=== PATIENT | female | born 1965 | race Caucasian/White ===

== ENCOUNTER 2020-11-20 21:50 | Inpatient (IN) | payer OTHER ==
[~2020-11-20] VITALS: Ht 170.2 cm; Wt 68.0 kg
[2020-11-20] MEDS ORDERED: LORAZEPAM 2 MG/1 ML VIAL IV ONE (22:00)
[2020-11-20] MEDS ORDERED: IV NORMAL SALINE 1000 ML BAG IV ONE (22:00)
--- NOTE | 2020-11-20 22:08 | NUR ---
Called Marci Davis, owner professional engineer of [facility] [facility] @ , no answer, unable to leave message due to mailbox not set up.
[2020-11-20] MEDS ORDERED: IV NS 1000 ML 1,000 ML IV ONE (22:15)
[2020-11-20 22:17] LABS: BASOPHILS % (AUTO) 0.8 % (0.0-2.0); EOSINOPHILS % (AUTO) 0.2 % (0.0-7.0); HEMATOCRIT 40.8 % (31.2-41.9); HEMOGLOBIN 13.9 g/dL (10.9-14.3); LYMPHOCYTES # (AUTO) 1.4 K/uL (20.0-40.0); MEAN CORPUSCULAR HEMOGLOBIN 29.5 uug (24.7-32.8); MEAN CORPUSCULAR HGB CONC 34 g/dL (32.3-35.6); MEAN CORPUSCULAR VOLUME 86.5 fL (75.5-95.3); MONOCYTES # (AUTO) 0.3 K/uL (2.0-10.0); MONOCYTES % (AUTO) 9.3 % (0.0-11.0); NEUTROPHILS # (AUTO) 1.9 K/uL (1.8-8.9); NEUTROPHILS % (AUTO) 51.7 % (38.5-71.5); PLATELET COUNT (AUTO) 183 K/uL (179-408); RED BLOOD CELL COUNT(AUTO) 4.72 MIL/uL (3.63-4.92); WHITE BLOOD COUNT (AUTO) 3.6 K/uL (3.8-11.8)
--- NOTE | 2020-11-20 22:18 | NUR ---
Dr. Hamilton speaking with [facility] Superintendent, Marci Davis.
[2020-11-20] MEDS ORDERED: PRAZ2CAP2 PO (22:24)
[2020-11-20] MEDS ORDERED: QUET400T PO (22:24)
[2020-11-20] MEDS ORDERED: LAMO200T10 PO (22:24)
[2020-11-20] MEDS ORDERED: TRAZ-257 PO (22:24)
[2020-11-20] MEDS ORDERED: QUET50TA PO (22:24)
[2020-11-20] MEDS ORDERED: LAMO150T6 PO (22:24)
[2020-11-20] MEDS ORDERED: QUET200T PO (22:24)
[2020-11-20 22:40] LABS: CARBON DIOXIDE 26 mmol/L (21-32); CHLORIDE 103 mmol/L (98-107); CREATININE 1.2 mg/dL (0.6-1.3); GLUCOSE 181 mg/dL (74-106); POTASSIUM 3.4 mmol/L (3.5-5.1); UREA NITROGEN, BLOOD 11 mg/dL (7-18)
[2020-11-20 22:43] LABS: ETHANOL < 3 MG/DL (0-0)
[2020-11-20 22:53] LABS: ALANINE AMINOTRANSFERASE 33 U/L (14-59); ALKALINE PHOSPHATASE 102 U/L (50-136); ASPARTATE AMINOTRANSFERASE 22 U/L (15-37); BILIRUBIN,DIRECT 0.1 mg/dL (0.0-0.2); BILIRUBIN,TOTAL 0.2 mg/dL (0.2-1.0); TOTAL PROTEIN, SERUM 6.9 g/dL (6.4-8.2)
[2020-11-20 22:54] LABS: ACETAMINOPHEN < 2.0 ug/mL (10-30)
[2020-11-20 23:02] LABS: THYROID STIMULATING HORMONE 5.958 mIU/mL (0.358-3.740)
--- NOTE | 2020-11-20 23:03 | NUR ---
Patient transported to Radiology for CT scan, patient HR has come down significantly. Patien denied any acute distress at this time.
[2020-11-20] MEDS ORDERED: POTASSIUM CHLORIDE 20 MEQ TAB.PRT.SR PO ONE (23:30)
[2020-11-20] MEDS: MAGNESIUM SULFATE/D5W 100 ML IV SCH (23:30)
[2020-11-20] MEDS: POTASSIUM CHLORIDE 50 ML IV SCH (23:47)
[2020-11-20] MEDS ORDERED: POTASSIUM CHLORIDE 100 ML ONE (23:51)
[2020-11-20] MEDS ORDERED: MAGNESIUM SULFATE/D5W 100 ML ONE (23:51)
[2020-11-20] MEDS ORDERED: POTASSIUM CHLORIDE 20 MEQ TAB.PRT.SR ONE (23:51)
--- NOTE | 2020-11-21 | NUR ---
Patient will be going to [facility] for Tele overflow
[2020-11-21 00:51] LABS: *BILIRUBIN,URIN NEGATIVE (NEGATIVE); *BLOOD, URINE NEGATIVE (NEGATIVE); *CLARITY,URINE CLEAR (CLEAR); *COLOR,URINE YELLOW (YELLOW); *KETONES,URINE NEGATIVE (NEGATIVE); *UROBILINOGEN,URINE 0.2 E.U./dl (NORMAL); LEUKOCYTE ESTERASE ,URINE NEGATIVE (NEGATIVE); NITRITE, URINE NEGATIVE (NEGATIVE); PH,URINE 5.5 (5.0-8.0); UGLUCOSE NEGATIVE (NEGATIVE)
[2020-11-21 01:03] LABS: *AMPHETAMINE, URINE NEGATIVE (NEGATIVE); *CANNABINOID, URINE NEGATIVE (NEGATIVE); *COCCAINE, URINE NEGATIVE (NEGATIVE); *OPIATE, URINE NEGATIVE (NEGATIVE); *PHENCYCLIDINE SCREEN,URINE NEGATIVE (NEGATIVE)
[2020-11-21] MEDS: POTASSIUM CHLORIDE 50 ML IV SCH (01:19)
--- NOTE | 2020-11-21 01:23 | NUR ---
DEE Harper MD has accepted the patient. Patient will be going into room 302. Per Bag Tester, Danielle patient can go up at 0200.
[2020-11-21] MEDS ORDERED: ONDANSETRON 4 MG/2 ML VIAL IV PRN (02:00)
[2020-11-21] MEDS ORDERED: Z GUARD REMEDY PASTE 57 GM TUBE TOP PRN (02:00)
[2020-11-21] MEDS ORDERED: ACETAMINOPHEN 325 MG TABLET PO PRN (02:00)
[2020-11-21] MEDS ORDERED: MAGNESIUM HYDROXIDE 30 ML LIQUID UDC PO PRN (02:00)
[2020-11-21] MEDS ORDERED: HYDROCODONE/APAP 5-325MG TABLET PO PRN (02:00)
--- NOTE | 2020-11-21 03:20 | NUR ---
Report given to STAN Eatonbrim ironer hand.
--- NOTE | 2020-11-21 03:56 | NUR ---
Patient transported to inpatient in stable condition. Transferred under the care of Dr. Nieves
--- NOTE | 2020-11-21 04:00 | NUR ---
Admitted a 55 yr female to room 302 tele unit from Er via [facility].Dx of near syncope.Patient asleep .Alert x3.No s/s of distress noted.On RA.Iv on Right aC 20g,patent and intact. Started IVF Ns at 80 ml/hr. Tolerated well.SAfeyt measures in place.Call light with in reach.
[2020-11-21] MEDS: IV NS 1000 ML 1,000 ML IV PRN ×2 (04:27→18:12)
[2020-11-21 05:31] VITALS: BP 93/58
[2020-11-21] MEDS: PANTOPRAZOLE SODIUM 40 MG TABLET.DR PO SCH (06:03)
--- NOTE | 2020-11-21 08:00 | NUR ---
RECEIVED PATIENT IN BED WAS ASLEEP ORIGINALLY BUT AWOKE UP AND SHE IS ALERT AND ORIENTED AND VERBALLY RESPONSIVE REQUESTED TO USE THE RESTROOM ASSISTED AMBULATORY WITH SLOW STEADY GAIT AND VOIDED AND BACK TO BED CURRENTLY ON IVF NS AT 75 ML/HR VIA HEPLOCK ON HER RIGHT AC WITH NO S/S OF INFILTERATION ON SITE TELE IS SR AT THIS TIME CALL LIGHTS AND PERSONAL BELONGINGS ARE WITHIN EASY REACH MADE COMFORTABLE WILL CONTINUE TO OBSERVE AND PROVIDE SAFETY.
[2020-11-21] MEDS: QUETIAPINE FUMARATE 25 MG TABLET PO SCH (08:38)
[2020-11-21] MEDS: LAMOTRIGINE 200 MG TABLET PO SCH ×2 (09:13→17:00)
[2020-11-21 11:30] VITALS: BP 120/70
--- NOTE | 2020-11-21 11:30 | NUR ---
PATIENT SEEN AND EXAMINED BY PHYSICAL THERAPY FOR THERAPEUTIC EXERCISES WITH GOOD ENDURANCE NO NEED FOR SKILLED THERAPY AT THIS TIME.
[2020-11-21 15:43] VITALS: BP 111/69
--- NOTE | 2020-11-21 16:22 | NUR ---
PATIENT MOVED TO ROOM 306 CLOSER THE THE NURSING STATION WILL CONTINUE TO OBSERVE AND PROVIDE SAFETY.
[2020-11-21] MEDS ORDERED: QUETIAPINE FUMARATE 200 MG TABLET PO SCH (18:00)
[2020-11-21] MEDS ORDERED: TRAZODONE 100 MG TABLET PO SCH (18:00)
--- NOTE | 2020-11-21 18:59 | NUR ---
PT WAS IN THE BATHROOM AT ABOUT 1815 AND HR NOTED TO BE ABOUT 168. CHECKED ON PT DENIES CHEST PAIN. ASSISTED BACK INTO BED. MADE COMFORTABLE. HR RIGHT NOW IS ABOUT 115 SR.
--- NOTE | 2020-11-21 19:45 | NUR ---
PATIENT ALERT ORIENTED, NO SOB NO CHEST PAIN. PATIENT ASSISTED WITH TOILETING, NO COMPLAIN OF PAIN. PATIENT STAY IN HER ROOM ISOLATIVE, CALL LIGHT WITHIN REACH. ORTHO STATIC BP DONE. CONT TO MONITOR.
[2020-11-21 20:06] VITALS: BP 104/59
--- NOTE | 2020-11-21 22:00 | NUR ---
PATIENT SUPPOSEDLY TO HAVE ORTHOSTATIC V/S BUT PATIENT REFUSED TO FOLLOW INSTRUCTION, REFUSED TO STAND UP, AND LAY FLAT.
--- NOTE | 2020-11-21 22:00 | NUR ---
PATIENT AWAKE, WITH AGITATION, WANTED HER IV TO BE DISCONTINUE, REDIRECT BEHAVIOR, CONT TO MONITOR.
[2020-11-22 00:03] VITALS: BP 120/69
[2020-11-22 04:06] VITALS: BP 138/75
--- NOTE | 2020-11-22 05:46 | NUR ---
PATIENT ALERT ORIENTED, NO SOB NO CHEST PAIN. TELE MONITOR SINUS RHYTHM AT THIS TIME. PATIENT HAS NO COMPLAIN OF PAIN, PATIENT ASSISTED WITH TOILETING, NO DIZZINESS, NO SYNCOPAL EPISODES, CALL LIGHT WITHIN REACH.
[2020-11-22] MEDS: PANTOPRAZOLE SODIUM 40 MG TABLET.DR PO SCH (06:01)
[2020-11-22 06:44] LABS: BASOPHILS % (AUTO) 0.7 % (0.0-2.0); EOSINOPHILS % (AUTO) 0.2 % (0.0-7.0); HEMATOCRIT 38.4 % (31.2-41.9); HEMOGLOBIN 12.7 g/dL (10.9-14.3); LYMPHOCYTES # (AUTO) 0.6 K/uL (20.0-40.0); LYMPHOCYTES % (AUTO) 21.1 % (20.5-51.5); MEAN CORPUSCULAR HEMOGLOBIN 29.2 uug (24.7-32.8); MEAN CORPUSCULAR HGB CONC 33 g/dL (32.3-35.6); MEAN CORPUSCULAR VOLUME 88.5 fL (75.5-95.3); MONOCYTES # (AUTO) 0.2 K/uL (2.0-10.0); MONOCYTES % (AUTO) 7.1 % (0.0-11.0); NEUTROPHILS # (AUTO) 2.1 K/uL (1.8-8.9); NEUTROPHILS % (AUTO) 70.9 % (38.5-71.5); PLATELET COUNT (AUTO) 149 K/uL (179-408); RED BLOOD CELL COUNT(AUTO) 4.34 MIL/uL (3.63-4.92); WHITE BLOOD COUNT (AUTO) 2.9 K/uL (3.8-11.8)
--- NOTE | 2020-11-22 06:48 | NUR ---
NOVEL MARTINEZ TEST PCR DONE, SENT TO LAB.
[2020-11-22 07:10] LABS: MAGNESIUM 2.2 mg/dL (1.8-2.4); PHOSPHOROUS 4.1 mg/dL (2.5-4.9); POTASSIUM 4.1 mmol/L (3.5-5.1)
[2020-11-22 07:25] LABS: THYROID STIMULATING HORMONE 1.282 mIU/mL (0.358-3.740)
[2020-11-22] MEDS: QUETIAPINE FUMARATE 25 MG TABLET PO SCH (08:25)
[2020-11-22] MEDS: LAMOTRIGINE 200 MG TABLET PO SCH (08:25)
[2020-11-22 10:49] VITALS: BP_SYST 116; BP_SYST 123; BP_SYST 127; BP_DIAS 61; BP_DIAS 67; BP_DIAS 75
[2020-11-22 10:52] VITALS: BP 116/61
--- NOTE | 2020-11-22 10:53 | NUR ---
PATIENT SEEN AND EXAMINED BY WARREN OSHEA STATED D/C PLANNING TODAY BUT WANTS TO REVIEW HER ORTHOSTATIC BLOOD PRESSURES FIRST DONE AND DOCUMENTED ON THE LONG FORM
--- NOTE | 2020-11-22 11:20 | NUR ---
ORDER TO DISCHARGE PATIENT BACK TO [facility] TODAY PATIENT AWARE AND STATED WILL CALL DARRYL THE COORDINATOR OF [facility] TO PICK HER UP
--- NOTE | 2020-11-22 12:34 | NUR ---
PATIENT STATED MAKING ATTEMPTS FOR A RIDE CALLED HER DAUGHTER SALVATORE AND LEFT THEM MESSAGES AWAITING FOR RETURN CALL.
[2020-11-22 12:46] LABS: LYMPHOCYTES % (MANUAL) 23 % (20-40); MONOCYTES % (MANUAL) 5 % (2-10); NEUTROPHILS % (MANUAL) 72 % (42-75)
--- NOTE | 2020-11-22 12:54 | NUR ---
CALL RECEIVED FROM [facility] STATED THAT LITTLE THE WILDLIFE TECHNICIAN WILL BE HERE AT 14OO TO DRIVE PATIENT BACK TO THE [facility] PATIENT AWARE AND STATED OKAY.
--- NOTE | 2020-11-22 14:00 | NUR ---
PATIENT DISCHARGED PICKED UP BY LITTLE THE [employer] RN GERIATRIC IN SATISFACTORY CONDITION WITH DISCHARGE INSTRUCTIONS INCLUDING TO FOLLOW UP WITH THE MOUNTER [employer]ES AND [employer] FOR A HOLTER MONITOR CHECKS ENCOURAGE FLUID INTAKE AVOID BEING IN A HASTE TAKE IT EASY FOLLOW UP ALSO WITH HER PRIMARY DOCTOR AND SOME LIFE STYLE CHANGES AND SHE EXPRESSED UNDERSTANDING PATIENT DISCHARGED IN SATISFACTORY CONDITION DENIES DIZZINESS AT THIS TIME.
== END 2020-11-22 14:00 | disposition home or self-care (01) | DRG 74 ==
LOC: ER 21:52 → TELE3 23:50
PROVIDERS: ADMIT Internal Medicine; ATTEND Nurse Practitioner Family
DX: G90.8 Other disorders of autonomic nervous system (principal); E87.2 Acidosis; N17.9 Acute kidney failure, unspecified; F43.10 Post-traumatic stress disorder, unspecified; E66.9 Obesity, unspecified; E86.0 Dehydration; E87.6 Hypokalemia; F20.9 Schizophrenia, unspecified; Z68.23 Body mass index [BMI] 23.0-23.9, adult; Z71.3 Dietary counseling and surveillance; I95.1 Orthostatic hypotension; Z20.822 Contact with and (suspected) exposure to COVID-19
CPT/HCPCS: 36415; 70030-TC; 70450; 71045; 83605; 83735; 84100; 84443; 85025; 85730; 87040; 93005; 93307; A4663; G0378; G0480; J2060; J3475; J3480; J7030; U0003

== ENCOUNTER 2021-01-17 15:12 | Emergency (ER) | payer OTHER ==
[~2021-01-17] VITALS: Ht 170.2 cm; Wt 65.8 kg
[~2021-01-17 15:12] MED LIST: LAMO150T6 PO; LAMO200T10 PO; PRAZ2CAP2 PO; QUET200T PO; QUET400T PO; QUET50TA PO; TRAZ-257 PO
[2021-01-17] MEDS ORDERED: IV NORMAL SALINE 1000 ML BAG IV ONE (15:30)
[2021-01-17 16:00] LABS: HEMATOCRIT 37.1 % (31.2-41.9); HEMOGLOBIN 12.6 g/dL (10.9-14.3); LYMPHOCYTES # (AUTO) 0.7 K/uL (20.0-40.0); LYMPHOCYTES % (AUTO) 19.7 % (20.5-51.5); MEAN CORPUSCULAR HGB CONC 34 g/dL (32.3-35.6); MEAN CORPUSCULAR VOLUME 85.3 fL (75.5-95.3); MONOCYTES # (AUTO) 0.3 K/uL (2.0-10.0); MONOCYTES % (AUTO) 8.7 % (0.0-11.0); NEUTROPHILS # (AUTO) 2.5 K/uL (1.8-8.9); NEUTROPHILS % (AUTO) 70.6 % (38.5-71.5); PLATELET COUNT (AUTO) 167 K/uL (179-408); RED BLOOD CELL COUNT(AUTO) 4.35 MIL/uL (3.63-4.92); WHITE BLOOD COUNT (AUTO) 3.5 K/uL (3.8-11.8)
[2021-01-17 16:02] LABS: CREATININE 1.2 mg/dL (0.6-1.3); POTASSIUM 4.1 mmol/L (3.5-5.1)
[2021-01-17 16:08] LABS: BILIRUBIN,DIRECT 0.1 mg/dL (0.0-0.2); BILIRUBIN,TOTAL 0.6 mg/dL (0.2-1.0); TOTAL PROTEIN, SERUM 7.8 g/dL (6.4-8.2)
--- NOTE | 2021-01-17 16:48 | NUR ---
Patient discharged to home in stable condition. Written and verbal after care instructions given. Patient verbalizes understanding of instructions. Stressed follow up or return to ER for worsening s/s.PT SAYS FEELS BETTER. PT CALLING TO ARRANGE FOR PICKUP.
[2021-01-17 17:02] VITALS: BP 119/70
== END 2021-01-17 16:48 | disposition home or self-care (01) ==
LOC: ER 15:12
DX: R00.2 Palpitations (principal); R00.0 Tachycardia, unspecified; F20.9 Schizophrenia, unspecified; F31.9 Bipolar disorder, unspecified; F43.10 Post-traumatic stress disorder, unspecified; Z79.899 Other long term (current) drug therapy
CPT/HCPCS: 36415; 70030-TC; 71045; 84443; 85025; 93005; A4663; J7030

== ENCOUNTER 2021-03-24 01:38 | Emergency (ER) | payer OTHER ==
[~2021-03-24] VITALS: Ht 167.6 cm; Wt 59.0 kg
--- NOTE | 2021-03-24 01:42 | NUR ---
Pt BIB [facility], RA states they found her lying down at someone else house with c/o dizziness. Patient noted to be very desheveled and covered in her own urine. A/O x2. No SOB or labored breathing, afebrile. denies CP/pressure. Denies any GI/ distress. All pulses palpable. Patient states she has "not taken my psych medications in a while".
--- NOTE | 2021-03-24 01:43 | NUR ---
Morgan PHILLIPS [id number], serial number [id number] at bedside.
--- NOTE | 2021-03-24 01:44 | NUR ---
HOME ADDRESS : [id number]
[2021-03-24] MEDS ORDERED: LORAZEPAM 2 MG/1 ML VIAL IM STA (01:48)
[2021-03-24] MEDS ORDERED: HALOPERIDOL LACTATE 5 MG/1 ML VIAL IM STA (01:48)
[2021-03-24] MEDS ORDERED: diphenhydrAMINE 50 MG/1 ML VIAL IM STA (01:48)
[2021-03-24] MEDS ORDERED: HALOPERIDOL LACTATE 5 MG/1 ML VIAL ONE (01:54)
[2021-03-24] MEDS ORDERED: LORAZEPAM 2 MG/1 ML VIAL ONE (01:55)
[2021-03-24] MEDS ORDERED: diphenhydrAMINE 50 MG/1 ML VIAL ONE (01:55)
[2021-03-24 02:01] LABS: HEMATOCRIT 43.7 % (31.2-41.9); MEAN CORPUSCULAR HEMOGLOBIN 29.2 uug (24.7-32.8); PLATELET COUNT (AUTO) 218 K/uL (179-408)
[2021-03-24 02:08] LABS: CARBON DIOXIDE 21 mmol/L (21-32); CHLORIDE 109 mmol/L (98-107); CREATININE 1.3 mg/dL (0.6-1.3); GLUCOSE 84 mg/dL (74-106); POTASSIUM 3.8 mmol/L (3.5-5.1); UREA NITROGEN, BLOOD 38 mg/dL (7-18)
[2021-03-24 02:14] LABS: ACETAMINOPHEN < 2.0 ug/mL (10-30); ALANINE AMINOTRANSFERASE 51 U/L (14-59); ALKALINE PHOSPHATASE 124 U/L (50-136); ASPARTATE AMINOTRANSFERASE 144 U/L (15-37); BILIRUBIN,DIRECT 0.2 mg/dL (0.0-0.2); BILIRUBIN,TOTAL 0.7 mg/dL (0.2-1.0); TOTAL PROTEIN, SERUM 8.5 g/dL (6.4-8.2)
[2021-03-24 02:22] LABS: ETHANOL < 3 MG/DL (0-0)
[2021-03-24] MEDS ORDERED: IV NS 1000 ML 1,000 ML IV ONE ×2 (02:30)
--- NOTE | 2021-03-24 04:02 | NUR ---
Called crisis and spoke with Art for patient eval.
[2021-03-24 04:26] LABS: *BILIRUBIN,URIN 1+ (NEGATIVE); *CLARITY,URINE CLEAR (CLEAR); *COLOR,URINE YELLOW (YELLOW); *KETONES,URINE 4+ (NEGATIVE); *UROBILINOGEN,URINE 0.2 E.U./dl (NORMAL); LEUKOCYTE ESTERASE ,URINE NEGATIVE (NEGATIVE); NITRITE, URINE NEGATIVE (NEGATIVE); PH,URINE 5.5 (5.0-8.0); UGLUCOSE NEGATIVE (NEGATIVE)
[2021-03-24 04:31] LABS: *BLOOD, URINE TRACE (NEGATIVE)
--- NOTE | 2021-03-24 04:31 | NUR ---
Art from crisis at bedside, for patient eval.
[2021-03-24 04:37] LABS: BACTERIA,URINE FEW /HPF (NONE SEEN); RBC,URINE 0-3 /HPF (0-3); SQUAMOUS EPITHELIAL CELL,UR NONE SEEN /HPF (NONE SEEN); WBC,URINE 0-3 /HPF (0-3)
[2021-03-24 04:40] LABS: *AMPHETAMINE, URINE NEGATIVE (NEGATIVE); *CANNABINOID, URINE NEGATIVE (NEGATIVE); *COCCAINE, URINE NEGATIVE (NEGATIVE); *OPIATE, URINE NEGATIVE (NEGATIVE); *PHENCYCLIDINE SCREEN,URINE NEGATIVE (NEGATIVE)
--- NOTE | 2021-03-24 05:17 | NUR ---
Patient is resting comfortably in bed with eyes closed.
--- NOTE | 2021-03-24 07:12 | NUR ---
Gave report to STAN Springer. Patient is resting comfortably in bed with eyes closed.
--- NOTE | 2021-03-24 07:33 | NUR ---
assumed patient care 55 years old female sleeping no acute changes vital stable awaiting for social consult.
--- NOTE | 2021-03-24 11:00 | NUR ---
patient very sleepy called daughter Leslee at [phone] and left messages on voice mail to call er.
[2021-03-24 13:13] LABS: *URINE HCG, QUAL NEGATIVE (NEGATIVE)
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
--- NOTE | 2021-03-24 18:27 | NUR ---
called Abby Sykes at [phone] no answer
--- NOTE | 2021-03-24 19:33 | NUR ---
patient alert, verbally responsive talked to Cristina patient stable for d/c to boarding care
--- NOTE | 2021-03-24 20:43 | NUR ---
Called [employer], vidhya 45min~. Patient provided with a taxi voucher.
--- NOTE | 2021-03-24 21:37 | NUR ---
CHECKED OUTSIDE IN THE FRONT LOBBY IF TAXI IS THERE ,NO TAXI NOTED OUTSIDE , PATIENT IN ROOM SLEEPING NO RESPIRATORY DISTRESS NOTED .
--- NOTE | 2021-03-24 22:26 | NUR ---
Called [employer] for the status of the taxi, lost the order, will put a new one again, will call back as soon as a taxi is available in the area.
--- NOTE | 2021-03-25 01:50 | NUR ---
Called [employer], no cabs available at this time.
--- NOTE | 2021-03-25 03:19 | NUR ---
IN BED SLEEPING ,ABLE TO REPOSITION SELF IN BED .NO DISCOMFORT NOTED.STILL WAITING FOR THE TAXI.
--- NOTE | 2021-03-25 03:21 | NUR ---
NO TAXI AVAILABLE FOR NOW .
--- NOTE | 2021-03-25 03:50 | NUR ---
Received call back from [employer], no taxi available for atleast a couple more hours.
--- NOTE | 2021-03-25 05:46 | NUR ---
Called [employer] for status of ride, no taxi available yet, but there should be more drivers signing in soon.
[2021-03-25 07:23] VITALS: BP 100/55
== END 2021-03-25 07:24 | disposition home or self-care (01) ==
LOC: ER 01:42
DX: E87.0 Hyperosmolality and hypernatremia (principal); E86.0 Dehydration; R94.31 Abnormal electrocardiogram [ECG] [EKG]; F20.9 Schizophrenia, unspecified; F31.9 Bipolar disorder, unspecified; F43.10 Post-traumatic stress disorder, unspecified
CPT/HCPCS: 36415; 71045; 80048; 80076; 80179; 80299; 80307; 80320; 81001; 83605; 84702; 84703; 85025; 93005; 96360; 96361; 96372; 99285; J1200; J1630; J2060; A4663; C1758; G0480; J7030